=== PATIENT | female | born 1980 | race Hispanic/Latino ===

== ENCOUNTER 2019-05-15 00:47 | Inpatient (IN) | payer OTHER ==
[~2019-05-15] VITALS: Ht 152.4 cm; Wt 80.7 kg
[2019-05-15] VITALS (7 sets, daily range): BP systolic 113–147; BP diastolic 64–91
[2019-05-15] MEDS ORDERED: LACTATED RINGERS 1000ML 1,000 ML IV PRN (00:49)
[2019-05-15] MEDS ORDERED: LACTATED RINGERS 1000ML 1,000 ML IV ONE ×2 (01:25→02:00)
[2019-05-15] MEDS ORDERED: CEFAZOLIN SODIUM 1 GM VIAL ONE (01:25)
[2019-05-15] MEDS ORDERED: DURAMORPH PF1 MG/ML 10ML AMP IV ONE (01:49)
[2019-05-15] MEDS ORDERED: PREN1TAB80 PO (01:57)
[2019-05-15] MEDS ORDERED: FERR-82 PO (01:58)
[2019-05-15] MEDS ORDERED: OXYTOCIN-LR 20 UNITS/1000 ML 1,000 ML IV ONE (02:00)
[2019-05-15] MEDS ORDERED: CEFAZOLIN SODIUM 1 GM VIAL IVP PRN (02:00)
[2019-05-15] MEDS ORDERED: EPHEDRINE SULFATE 50 MG/ML AMPULE ONE (02:01)
[2019-05-15] MEDS ORDERED: ONDANSETRON HCL 4 MG/2 ML VIAL ONE (02:02)
[2019-05-15] MEDS ORDERED: OXYTOCIN 10 USP UNITS/ML ONE ×2 (02:11→02:24)
[2019-05-15 02:41] LABS: HEMATOCRIT 28.9 % (36-48); MEAN CORPUSCULAR HEMOGLOBIN 27.6 pg (27.0-33.0); MEAN CORPUSCULAR HGB CONC 33.4 g/dL (32.0-36.0); MEAN CORPUSCULAR VOLUME 82.6 fL (79-99); NUCLEATED RED BLOOD CELLS 0.3 % (0.0-0.19); PLATELET COUNT (AUTO) 368 K/uL (130-400); RED CELL DISTRIBUTION WIDTH 16.6 % (11.0-15.5); WHITE BLOOD COUNT (AUTO) 6.9 K/uL (4.8-10.8)
[2019-05-15] MEDS ORDERED: OXYTOCIN-LR 20 UNITS/1000 ML 1,000 ML IV PRN (04:00)
[2019-05-15] MEDS ORDERED: SODIUM CHLORIDE 0.9% 10 ML VIAL IVP PRN (04:00)
[2019-05-15] MEDS ORDERED: DEXTROSE 5 %-0.45 % NACL 1,000 ML IV PRN (04:00)
[2019-05-15] MEDS ORDERED: PROMETHAZINE HCL 25 MG/ML 1ML AMPULE IM PRN (04:00)
[2019-05-15] MEDS ORDERED: MEPERIDINE-PF 75 MG/ML SYG IM PRN (04:00)
[2019-05-15] MEDS ORDERED: DiphenhydrAMINE HCL 50 MG/ML VIAL ONE (04:39)
[2019-05-15] MEDS ORDERED: ACETAMINOPHEN EXTRA STRENGTH 500 MG TABLET PO PRN (07:30)
[2019-05-15] MEDS ORDERED: HYDROCODONE/ACETAMINOPHEN 5/325 MG TAB PO PRN (07:30)
[2019-05-15] MEDS ORDERED: BISACODYL 10 MG SUPP.RECT RC PRN (07:30)
[2019-05-15] MEDS ORDERED: IBUPROFEN 600 MG TABLET PO PRN (07:30)
--- NOTE | 2019-05-15 07:45 | NUR ---
PATIENT ASSESSED AND DENIES PAIN. DELEON DRAINING ANISHA URINE AND DISCARDED 200CC OF URINE. DRESSING IS CLEAN AND DRY. BABY IN BED WITH PATIENT AND IS BABY AND BONDING WELL.
[2019-05-15] MEDS: SIMETHICONE 80 MG TAB.CHEW PO PRN ×4 (08:42→21:58)
[2019-05-15] MEDS: DOCUSATE SODIUM 100 MG CAP PO SCH ×2 (08:42→21:58)
[2019-05-15] MEDS: IBUPROFEN 800 MG TAB PO SCH ×2 (08:44→15:45)
--- NOTE | 2019-05-15 10:00 | NUR ---
DR. MONTERROSO ROUNDED AND NEW ORDERS GIVEN FOR PATIENT TO BE ADVANCED AFTER 12NOON. PATIENT STABLE AND DENIES PAIN.
[2019-05-15] MEDS ORDERED: BENZOCAINE/MENTH/CETYLPYRD CL 1 EACH LOZENGE MM PRN (10:30)
--- NOTE | 2019-05-15 12:30 | NUR ---
PATIENT HAD DELEON CATHETER REMOVE AND DISCARDED 300CC OF BLOOD TINGED URINE. PATIENT HAD IV INCREASED TO 200CC DUE TO LOW OUTPUT AND URINE LIGHT ANISHA.
[2019-05-15] MEDS: ACETAMINOPHEN-CODEINE 300/30MG TAB PO PRN (18:24)
--- NOTE | 2019-05-15 18:30 | NUR ---
PATIENT UP WALKING IN HALLWAY AND TOLERATING ACTIVITY WELL. DENIES ANY DIZZINESS AND WAS ABLE TO VOID SECOND TIME FOR 500CC OF LIGHT BLOOD TINGED URINE.
[2019-05-16] MEDS: IBUPROFEN 800 MG TAB PO SCH ×3 (00:52→16:45)
[2019-05-16 03:14] VITALS: BP 129/87
[2019-05-16] MEDS ORDERED: IBUPROFEN 800 MG TAB PO SCH (04:00)
[2019-05-16 06:31] LABS: HEMATOCRIT 23.4 % (36-48); MEAN CORPUSCULAR HEMOGLOBIN 27.4 pg (27.0-33.0); MEAN CORPUSCULAR HGB CONC 32.9 g/dL (32.0-36.0); MEAN CORPUSCULAR VOLUME 83.5 fL (79-99); NUCLEATED RED BLOOD CELLS 0.1 % (0.0-0.19); PLATELET COUNT (AUTO) 327 K/uL (130-400); RED CELL DISTRIBUTION WIDTH 16.5 % (11.0-15.5); WHITE BLOOD COUNT (AUTO) 8.6 K/uL (4.8-10.8)
[2019-05-16 07:20] VITALS: BP 128/77
--- NOTE | 2019-05-16 08:20 | NUR ---
PHYSICIAN ROUNDING DR. LORI TOWNSEND AT BEDSIDE TO ASSESS AND TALK TO PT.
--- NOTE | 2019-05-16 08:25 | NUR ---
PHYSICIAN ROUNDING DR. LORI TOWNSEND AT BEDSIDE TO ASSESS AND TALK TO PT.
[2019-05-16] MEDS: DOCUSATE SODIUM 100 MG CAP PO SCH ×2 (08:58→20:35)
[2019-05-16] MEDS: SIMETHICONE 80 MG TAB.CHEW PO PRN ×2 (08:58→20:35)
[2019-05-16 11:44] VITALS: BP 128/85
[2019-05-16] MEDS: ACETAMINOPHEN-CODEINE 300/30MG TAB PO PRN ×2 (12:02→22:21)
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
[2019-05-16 16:40] VITALS: BP 143/82
[2019-05-16 19:25] VITALS: BP 131/89
[2019-05-16 23:27] VITALS: BP 135/77
[2019-05-17] MEDS: IBUPROFEN 800 MG TAB PO SCH ×2 (00:09→08:13)
[2019-05-17 03:35] VITALS: BP 131/76
[2019-05-17 07:53] VITALS: BP 134/86
[2019-05-17] MEDS: DOCUSATE SODIUM 100 MG CAP PO SCH (08:11)
[2019-05-17] MEDS: SIMETHICONE 80 MG TAB.CHEW PO PRN (08:11)
--- NOTE | 2019-05-17 10:40 | NUR ---
DISCHARGE INSTRUCTIONS READ AND EXPLAINED TO PATIENT. PRESCRIPTION FOR TYLENOL #3 AND COLACE 100MG HANDED TO PT. INCISION CARE AND HEMORRHAGE REVIEWED WITH PT. QUESTIONS INVITED AND ANSWERED. PT VOICED UNDERSTANDING.
--- NOTE | 2019-05-17 11:20 | NUR ---
DISCHARGE PT LEFT UNIT VIA WHEELCHAIR WITH BABY IN ARMS. PERSONAL VEHICLE USED FOR TRANSPORTATION. BABY SECURE IN CARSEAT. NO COMPLAINTS OR CONCERNS ADDRESSED FROM PATIENT ON DISCHARGE.
== END 2019-05-17 11:20 | disposition home or self-care (01) | DRG 788 ==
LOC: EDH 00:47 → OBSVTOIN 00:48 → LDH 00:48 → WSH 05:10
PROVIDERS: ADMIT Obstetrics & Gynecology; ATTEND Obstetrics & Gynecology
PROC: 10D00Z1 Extraction of Products of Conception, Low, Open Approach (ICD-10-PCS; principal; 2019-05-15 00:40)
DX: O34.211 Maternal care for low transverse scar from previous cesarean delivery (principal); Z37.0 Single live birth; Z3A.39 39 weeks gestation of pregnancy
CPT/HCPCS: 36415; 59510; 85027; 86156; 86592; 86850; 86870; 86900; 86901; 87340; A4344; G0378; J0690; J1200; J2274; J2405; J2590; J3490; J7120